=== PATIENT | female | born 1965 | race Caucasian/White ===

== ENCOUNTER 2017-04-19 09:27 | Day surgery (SDC) | payer OTHER ==
[~2017-04-19] VITALS: Ht 170.2 cm; Wt 99.8 kg
[~2017-04-19 09:27] MED LIST: ADVIL LIQUI-GE200 MG PO; ATENOLOL50 MG PO; AVAPRO150 MG PO; BUSPAR15 MG PO; CRESTOR10 MG PO; FLAX OIL1000 MG PO; HYDROCODON-ACE1 EAC7 PO; IRON325 M1 PO; MYCELEX10 MG PO; NAPROSYN-EC500 MG PO; NAPROSYN500 MG PO; PERCOCET 5/31 TABLET PO; PRISTIQ100 MG PO; ZOFRAN ODT4 MG PO; ZOFRAN4 MG PO; [UNRECOGNIZED DRUG - OTHER] MM
[2017-04-19 10:45] VITALS: BP 139/90
[2017-04-19 15:51] VITALS: BP 138/80
[2017-04-19 16:44] VITALS: BP 143/88
== END 2017-04-19 16:50 | disposition home or self-care (01) ==
LOC: SDC 09:27
PROC: 0SBD4ZZ Excision of Left Knee Joint, Percutaneous Endoscopic Approach (ICD-10-PCS; principal; 2017-04-19)
DX: M17.12 Unilateral primary osteoarthritis, left knee (principal); M23.222 Derangement of posterior horn of medial meniscus due to old tear or injury, left knee; M23.201 Derangement of unspecified lateral meniscus due to old tear or injury, left knee; M65.862 Other synovitis and tenosynovitis, left lower leg; M23.42 Loose body in knee, left knee; I10 Essential (primary) hypertension; E66.9 Obesity, unspecified; Z68.31 Body mass index [BMI] 31.0-31.9, adult; Z98.84 Bariatric surgery status; F41.9 Anxiety disorder, unspecified; F32.9 Major depressive disorder, single episode, unspecified
CPT/HCPCS: J1100; J1170; J2250; J2270; J2405; J3010